=== PATIENT | female | born 1965 | race American Indian/Alaskan Native ===

== ENCOUNTER 2021-09-03 11:11 | Emergency (ER) | payer SELFPAY ==
--- NOTE | 2021-09-03 11:43 | Emergency Department Report ---
ED General Adult HPI - General Chief complaint: Dental/Oral Stated complaint: Dental Time Seen by Provider: 09/03/21 11:16 Source: patient Mode of arrival: Ambulatory Limitations: No Limitations - History of Present Illness Initial comments: 56-year-old -Faro[place] female patient presents with complaints of right- sided dental pain x4 days with facial swelling over the past day. She denies any dysphagia, fever/chills/sweats, or difficulty opening her jaw. She rates her pain as a 9/10 in severity. Patient is not currently following with a dent al specialist. She also denies any chest pain, cough, or shortness of breath. No past medical history per patient. Severity scale (0 -10): 8 - Related Data Previous Rx's Medication Instructions Recorded Last Taken Type Acetaminophen/Codeine [Tylenol 1 tab PO Q6H PRN #8 tab 09/03/21 Unknown Rx /Codeine # 3 tab] Clindamycin [Clindamycin CAP] 300 mg PO Q6H 10 Days #40 capsule 09/03/21 Unknown Rx Ibuprofen [Motrin 800 MG tab] 800 mg PO Q8HR PRN #20 tablet 09/03/21 Unknown Rx Allergies Allergy/AdvReac Type Severity Reaction Status Date / Time No Known Allergies Allergy Unverified 09/03/21 11:15 ED Review of Systems ROS: Stated complaint: Dental Other details as noted in HPI Constitutional: denies: chills, fever, malaise ENT: dental pain. denies: throat pain Respiratory: denies: cough, shortness of breath Cardiovascular: denies: chest pain Skin: denies: rash, change in color ED Past Medical Hx - Medications Home Medications: Home Medications Medication Instructions Recorded Confirmed Last Taken Type Acetaminophen/Codeine [Tylenol 1 tab PO Q6H PRN #8 tab 09/03/21 Unknown Rx /Codeine # 3 tab] Clindamycin [Clindamycin CAP] 300 mg PO Q6H 10 Days #40 capsule 09/03/21 Unknown Rx Ibuprofen [Motrin 800 MG tab] 800 mg PO Q8HR PRN #20 tablet 09/03/21 Unknown Rx ED Physical Exam - General Limitations: No Limitations General appearance: alert, in no apparent distress - Head Head exam: Present: atraumatic, normocephalic - Eye Eye exam: Present: normal appearance. Absent: scleral icterus - Expanded ENT Exam Expanded Mouth exam: Absent: drooling, trismus, muffled voice Teeth exam: Present: dental caries 1 - Dental Tenderness (Surrounding erythema with mild swelling noted and significant tenderness to palpation; no obvious dental abscess noted; mild overlying facial swelling noted without cellulitic changes) - Respiratory Respiratory exam: Absent: respiratory distress - Cardiovascular Cardiovascular Exam: Present: regular rate - Neurological Exam Neurological exam: Present: alert, oriented X3 - Psychiatric Psychiatric exam: Present: normal affect, normal mood - Skin Skin exam: Present: warm, dry, intact, normal color. Absent: rash ED Course Vital Signs 09/03/21 09/03/21 11:13 12:04 Temperature 97.8 F Pulse Rate 88 87 Respiratory 16 16 Rate Blood Pressure 163/88 146/68 [Right] O2 Sat by Pulse 100 Oximetry ED Medical Decision Making - Medical Decision Making 56-year-old -[place] female patient presents with complaints of right- sided dental pain x4 days with facial swelling over the past day. She denies any dysphagia, fever/chills/sweats, or difficulty opening her jaw. She rates her pain as a 9/10 in severity. Patient is not currently following with a dental specialist. She also denies any chest pain, cough, or shortness of breath. No past medical history per patient. Dental infection noted on exam. Given overlying facial swelling, will treat with clindamycin. Recommend patient follows up with dental specialist within 2 to 3 days. Blood pressure noted to be mildly elevated, patient denies history of hypertension and denies any neuro symptoms. Recommend she follows up with PCP for recheck of blood pressure and further treatment within 2 to 3 days. She is otherwise well-appearing and stable for discharge home. Strict return precautions were discussed in detail with patient who verbalizes understanding Critical care attestation.: If time is entered above; I have spent that time in minutes in the direct care of this critically ill patient, excluding procedure time. ED Disposition Clinical Impression: Dental infection, Elevated blood pressure reading without diagnosis of hypertension Disposition: 01 HOME / SELF CARE / HOMELESS Is pt being admited?: No Condition: Stable Instructions: Dental Abscess, Hypertension, Adult Prescriptions: Clindamycin [Clindamycin CAP] 300 mg PO Q6H 10 Days #40 capsule Ibuprofen [Motrin 800 MG tab] 800 mg PO Q8HR PRN #20 tablet PRN Reason: Pain, Moderate (4-6) Acetaminophen/Codeine [Tylenol /Codeine # 3 tab] 1 tab PO Q6H PRN #8 tab PRN Reason: Pain , Severe (7-10) Referrals: [facility] [Provider Group] - 2-3 Days (Recheck blood pressure) [facility] [Outside] - 2-3 Days (Dental infection ) Forms: Work/School Release Form(ED)
[2021-09-03 12:05] VITALS: BP 146/68
[2021-09-03] MEDS: IBUPROFEN 800 MG TAB PO STA (12:06)
[2021-09-03] MEDS: oxyCODONE /ACETAMINOPHEN 5-325MG TAB PO ONE (12:07)
== END 2021-09-03 12:05 | disposition home or self-care (01) ==
LOC: ED 11:11
DX: K04.7 Periapical abscess without sinus (principal); Z79.899 Other long term (current) drug therapy
CPT/HCPCS: 99282